=== PATIENT | female | born 1945 | race Caucasian/White ===

== ENCOUNTER 2019-03-31 23:15 | Inpatient (IN) | payer MEDICARE, OTHER ==
[~2019-03-31] VITALS: Ht 157.5 cm; Wt 54.4 kg
[2019-03-31 23:00] VITALS: BP 157/82
--- NOTE | 2019-03-31 23:00 | NUR ---
RECEIVED PATIENT VIA GURNEY A DIRECT ADMISSION FROM [facility] TO [facility]. PATIENT IS ALERT TO SELF ONLY. VERY CONFUSED AND DISORIENTED. NEEDS FREQUENT REDIRECTION. SITTER AT BEDSIDE FOR SAFETY. NO S/S OFP Addendum: 04/01/19 at 0323 by KARI RICK LVN NO S/S OF PAIN OR DISCOMFORT. NO FACIAL GRIMACE. WILL CONTINUE TO MONITOR.
--- NOTE | 2019-03-31 23:30 | NUR ---
PATIENT VERY AGITATED. SKIN ASSESSMENT DONE. SKIN NOTED TO BE INTACT. DRY RED SKIN NOTED TO BILATERAL HANDS, KNEES AND ELBOWS. UNABLE TO TAKE PICTURES AT THIS TIME. PATIENT REFUSING. ALL NEEDS ATTENDED. WILL CONTINUE TO MONITOR.
--- NOTE | 2019-04-01 00:30 | NUR ---
PATIENT WANDERING IN HALLWAY. VERY CONFUSED AND DISORIENTED. EASILY AGITATED WHEN APPROACHED, NEEDS FREQUENT REDIRECTION. SITTER AT BEDSIDE FOR SAFETY. ALL NEEDS ATTENDED.
[2019-04-01] MEDS ORDERED: MAGNESIUM HYDROXIDE 30 ML LIQUID UDC PO PRN (00:45)
[2019-04-01] MEDS ORDERED: CLONAZEPAM 0.5 MG TABLET PO SCH (00:45)
[2019-04-01] MEDS ORDERED: MAG HYDROX/AL HYDROX/SIMETH 30 ML LIQUID UDC PO PRN (00:45)
[2019-04-01] MEDS ORDERED: ACETAMINOPHEN 650 MG SUPP.RECT RC PRN (00:45)
[2019-04-01] MEDS: ACETAMINOPHEN 325 MG TABLET PO PRN (00:58)
[2019-04-01] MEDS: TEMAZEPAM 7.5 MG CAPSULE PO PRN (00:58)
--- NOTE | 2019-04-01 01:00 | NUR ---
PATIENT GIVEN RESTORIL 7.5MG PO PRN AND TYLENOL 650MG PO PRN. COOPERATIVE WITH TAKING PO MEDS. WILL CONTINUE TO MONITOR AND ASSESS.
--- NOTE | 2019-04-01 01:15 | NUR ---
PATIENT OOB AND TRYING TO ELOPE. UNABLE TO REDIRECT. AGITATED AND COMBATIVE WHEN APPROACHED. ROLLY MILLER CALLED AND PATIENT ASSISTED BACK TO BED. BED ALARM ON. SITTER AT BEDSIDE. ALL NEEDS ATTENDED. WILL CONTINUE TO MONITOR AND ASSESS.
[2019-04-01] MEDS ORDERED: ESCI10TA PO (01:35)
[2019-04-01] MEDS ORDERED: LOSA100T31 PO (01:35)
[2019-04-01] MEDS ORDERED: DIVA125T2 PO (01:35)
[2019-04-01] MEDS ORDERED: DIAZ10TA4 PO (01:35)
--- NOTE | 2019-04-01 01:55 | NUR ---
PATIENT AGGRESSIVE AND COMBATIVE WITH STAFF. ROLLY MILLER CALLED AGAIN FOR FURTHER ASSISTANCE. CALLED.
[2019-04-01] MEDS ORDERED: LORAZEPAM 2 MG/1 ML VIAL IM ONE (02:00)
[2019-04-01] MEDS ORDERED: diphenhydrAMINE 50 MG/1 ML VIAL IM ONE (02:00)
[2019-04-01] MEDS ORDERED: OLANZAPINE 10 MG VIAL IM ONE (02:00)
--- NOTE | 2019-04-01 02:00 | NUR ---
RECEIVED ORDERS FROM DR. MOE FOR IM INJECTION. BUSINESS DEVELOPMENT ASSOCIATE AND PIPELINE SYSTEMS OPERATOR AWARE. PATIENT GIVEN ZYPREXA 5MG IM, ATIVAN 1MG IM AND BENADRYL 25MG IM ORDERED PER MD. WILL CONTINUE TO MONITOR AND CLOSELY ASSESS. ALL NEEDS ATTENDED.
--- NOTE | 2019-04-01 02:15 | NUR ---
PATIENT IN BED. DOZING ON AND OFF. NO RESP. DISTRESS NOTED. ON RA SATING 95-96%. BED ALARM ON. SITTER AT BEDSIDE. ALL NEEDS ATTENDED. WILL CONTINUE TO MONITOR AND ASSESS. VSS.
[2019-04-01 02:30] VITALS: BP 141/67
--- NOTE | 2019-04-01 03:30 | NUR ---
PATIENT CLIMBED OOB. AMBULATING IN HALLWAY WITH SITTER. PATIENT IS VERY CONFUSED AND DISORIENTED. UNABLE TO REDIRECT, WHEN APPROACHED PATIENT IS VERY AGGRESSIVE.
--- NOTE | 2019-04-01 03:45 | NUR ---
PATIENT PLACED BACK TO BED. HITTING AND KICKING AT STAFF. BED ALARM ON. MENTAL HEALTH CHARGE NURSE AT BEDSIDE. SITTER AT BEDSIDE. WILL CONTINUE TO MONITOR. IM MEDICATION, INEFFECTIVE.
[2019-04-01] MEDS: CLONAZEPAM 0.5 MG TABLET PO PRN ×4 (04:44→17:19)
--- NOTE | 2019-04-01 04:45 | NUR ---
PATIENT AWAKE IN BED. VERY RESTLESS AND AGITATED. PATIENT GIVEN KLONOPIN 0.5MG PO PRN FOR ANXIETY. BED ALARM ON. ALL NEEDS ATTENDED, WILL CONTINUE TO MONITOR.
--- NOTE | 2019-04-01 06:01 | NUR ---
PATIENT AWAKE, SITTING IN CHERRIE-CHAIR WITH SITTER AT BEDSIDE. VERY ANXIOUS AND AGITATED. KLONOPIN INEFFECTIVE. NO RESP. DISTRESS NOTED. PICTURES TAKEN AND PLACED IN CHART. ALL NEEDS ATTENDED.
--- NOTE | 2019-04-01 07:15 | NUR ---
RECEIVED PATIENT PACING THE ROOM WITH 1;1 SITTER. AOX1, HARD TO REDIRECT. DENIES PAIN OR SOB AT THIS TIME. DENIES SI. FALL AND SAFETY PRECAUTIONS IN PLACE. BED IN LOW POSITION. CALL LIGHT IN REACH. BED LOCKED AND ALARM ON . WILL CONTINUE TO MONITOR.
[2019-04-01 08:00] VITALS: BP 155/78
[2019-04-01 12:00] VITALS: BP 136/73
[2019-04-01] MEDS: CEphaleXIN 500 MG CAPSULE PO SCH ×2 (13:14→22:07)
--- NOTE | 2019-04-01 15:08 | NUR ---
Initial Discharge Note: Patient is currently living at home with her daughter Carmen [[id number] [place] [address]; ]. Per daughter, "I would like her to return home if she is stabilized". Daughter wants to consider care home placement if patient continues exhibiting behavior problems. Search Engine Optimization Specialist will continue to collaborate with patient, family, and MD regarding appropriate discharge plans for this patient. Search Engine Optimization Specialist will form a safe and proper discharge plan.
[2019-04-01 16:19] VITALS: BP 151/81
--- NOTE | 2019-04-01 17:10 | NUR ---
PATIENT TRANSFERRED TO MHU VIA W/C WITH 1:1 SITTER. ALL BELONGINGS TRANSFERRED WITH PATIENT. REPORT GIVEN TO GABBY BRAN NURSE.
[2019-04-01] MEDS: DIVALPROEX SPRINKLE 125 MG CAP.SPRINK PO SCH (17:46)
--- NOTE | 2019-04-01 18:30 | NUR ---
GPS: RECEIVED PATIENT FROM OVERFLOW, PATIENT AMBULATORY, DISRORIENTED, CONFUSED, PATIENT UNABLE TO REDIRECT, PRN MEDICATION WAS GIVEN, PATIENT WITH 1:1 SITTER FOR SAFETY, PATIENT DELUSIONAL, PARANOID, WILL CONTINUE MONITOR
[2019-04-01 20:00] VITALS: BP 176/58
[2019-04-01] MEDS: QUETIAPINE FUMARATE 25 MG TABLET PO SCH (20:31)
[2019-04-01] MEDS: DIAZEPAM 10 MG TABLET PO SCH (20:31)
[2019-04-01] MEDS: ESCITALOPRAM OXALATE 10 MG TABLET PO SCH (20:31)
[2019-04-01] MEDS ORDERED: DIAZEPAM 5 MG TABLET PO SCH (21:00)
[2019-04-02] MEDS: CEphaleXIN 500 MG CAPSULE PO SCH ×3 (06:16→21:19)
[2019-04-02 07:30] VITALS: BP 158/67
[2019-04-02] MEDS: QUETIAPINE FUMARATE 25 MG TABLET PO SCH ×2 (08:42→20:26)
[2019-04-02] MEDS: DIAZEPAM 10 MG TABLET PO SCH ×2 (08:42→20:26)
[2019-04-02] MEDS: ACETAMINOPHEN 325 MG TABLET PO PRN ×3 (08:42→22:17)
[2019-04-02] MEDS: DIVALPROEX SPRINKLE 125 MG CAP.SPRINK PO SCH ×3 (08:42→16:46)
[2019-04-02] MEDS ORDERED: Medication Not On Formulary EA (Losartan Potassium 1 TAB) PO SCH (09:00)
[2019-04-02] MEDS: LOSARTAN POTASSIUM 50 MG TABLET PO SCH (14:29)
[2019-04-02 16:00] VITALS: BP 113/55
--- NOTE | 2019-04-02 18:00 | NUR ---
Gps/Nursery Attendant- Noted reddened knuckles/ hands, denies itching.
--- NOTE | 2019-04-02 18:11 | NUR ---
Gps/Hvac Engineer- Remains with 1:1 Nursing supervision for safety, routine mediciations was administered crushed with apple sauce. Tylenol 650 mg given po for arms discomfort, unable to verbalized pain levels, adequate relief.
[2019-04-02] MEDS: CLONAZEPAM 0.5 MG TABLET PO PRN ×2 (18:25→23:28)
--- NOTE | 2019-04-02 18:26 | NUR ---
Gps/Drawing Checker- OOB to scott-chair this pm, anxious, calling out, looking for her daughter. Continue to monitor safety, remains with 1:1 Nursing supervision.
[2019-04-02] MEDS: ATORVASTATIN 10 MG TABLET PO SCH (20:26)
[2019-04-02] MEDS: ESCITALOPRAM OXALATE 10 MG TABLET PO SCH (20:26)
[2019-04-02] MEDS: TEMAZEPAM 7.5 MG CAPSULE PO PRN (22:18)
[2019-04-03] MEDS: CLONAZEPAM 0.5 MG TABLET PO PRN ×3 (05:43→16:09)
[2019-04-03] MEDS: CEphaleXIN 500 MG CAPSULE PO SCH ×3 (05:43→21:46)
--- NOTE | 2019-04-03 06:25 | NUR ---
pt. unable to sleep all night long.severe agitation, confusion & disorientation noted. restoril 7.5 mg given for sleep & klonopin 0.5mg given q4hrs.prn. kept pt free from injury. pt. on 1:1 sitter for pt safety.
[2019-04-03 08:00] VITALS: BP 101/51
[2019-04-03] MEDS: LOSARTAN POTASSIUM 50 MG TABLET PO SCH (08:27)
[2019-04-03] MEDS: QUETIAPINE FUMARATE 25 MG TABLET PO SCH ×2 (08:28→21:00)
[2019-04-03] MEDS: DIAZEPAM 10 MG TABLET PO SCH ×2 (08:28→21:00)
[2019-04-03] MEDS: DIVALPROEX SPRINKLE 125 MG CAP.SPRINK PO SCH ×3 (08:28→16:10)
[2019-04-03] MEDS: ACETAMINOPHEN 325 MG TABLET PO PRN (12:15)
[2019-04-03 16:00] VITALS: BP 114/53
--- NOTE | 2019-04-03 20:00 | NUR ---
GPS/NSG Dr. Easley called to inform 72 hour hold at 2100. Dr. Easley stated Dr. Carias was covering for his patients. Dick Rosario, RN informed of hold status; to which Dr. Carias replied, "I will take care of it tomorrow in the morning."
[2019-04-03] MEDS: CLOTRIMAZOLE 1% CREAM 30 GM TUBE TOP SCH (20:13)
[2019-04-03 20:55] VITALS: BP 120/50
[2019-04-03] MEDS: ESCITALOPRAM OXALATE 10 MG TABLET PO SCH (21:00)
[2019-04-03] MEDS: ATORVASTATIN 10 MG TABLET PO SCH (21:00)
[2019-04-04] MEDS: CLONAZEPAM 0.5 MG TABLET PO PRN ×3 (02:19→20:12)
[2019-04-04] MEDS: ACETAMINOPHEN 325 MG TABLET PO PRN ×2 (02:26→12:42)
[2019-04-04] MEDS: CEphaleXIN 500 MG CAPSULE PO SCH ×3 (05:31→22:00)
[2019-04-04 07:30] VITALS: BP 139/64
[2019-04-04] MEDS: DIVALPROEX SPRINKLE 125 MG CAP.SPRINK PO SCH ×3 (08:20→17:31)
[2019-04-04] MEDS: LOSARTAN POTASSIUM 50 MG TABLET PO SCH (08:20)
[2019-04-04] MEDS: QUETIAPINE FUMARATE 25 MG TABLET PO SCH ×2 (08:20→20:12)
[2019-04-04] MEDS: DIAZEPAM 10 MG TABLET PO SCH ×2 (08:20→20:12)
[2019-04-04] MEDS: CLOTRIMAZOLE 1% CREAM 30 GM TUBE TOP SCH ×2 (08:21→17:30)
[2019-04-04 15:45] VITALS: BP 97/73
--- NOTE | 2019-04-04 17:00 | NUR ---
Gps/New Car Inspector- Patients' granddaughter Carmen in to visit this pm. Verbalized concerns regarding patient > sleepiness , informed patient didnt have good night sleep. Slow progress, had bouts of restlessness, needed constant supervision for her safety. Poor safety awareness, confused. Needed assist with all areas of her care as weel as needed assist with meals, no initiating to feed seld. Noted occ. coughing this pm, afebrile, will continue to monitor.
--- NOTE | 2019-04-04 18:36 | NUR ---
Gps/Loading Unit Operator Powder Charging- Patient starting to wake up, sat upright, fully awake, was feed w/ her dinner, fluids was offered. Remains with 1:1 Nursing supervision for safety.Removed dentures ,oral care was rendered by sitter.
[2019-04-04 19:59] VITALS: BP 146/62
[2019-04-04] MEDS: ESCITALOPRAM OXALATE 10 MG TABLET PO SCH (20:12)
[2019-04-04] MEDS: ATORVASTATIN 10 MG TABLET PO SCH (20:12)
--- NOTE | 2019-04-04 20:20 | NUR ---
Pt spit out scheduled HS meds: Valium 10mg, Lipitor 10mg, Seroquel 50mg, and Lexapro 10mg. Valium to be wasted. Klonopin 0.5mg successfully administered for restlessness and anxiety.
[2019-04-04] MEDS: TEMAZEPAM 7.5 MG CAPSULE PO PRN (21:39)
[2019-04-05] MEDS: CLONAZEPAM 0.5 MG TABLET PO PRN ×2 (00:20→06:00)
[2019-04-05] MEDS: CEphaleXIN 500 MG CAPSULE PO SCH ×2 (06:00→13:37)
[2019-04-05 07:30] VITALS: BP 141/66
[2019-04-05 07:37] LABS: BASOPHILS % (AUTO) 0.3 % (0.0-2.0); EOSINOPHILS # (AUTO) 0.1 K/uL (0.0-0.7); EOSINOPHILS % (AUTO) 0.4 % (0.0-7.0); HEMATOCRIT 41.8 % (31.2-41.9); HEMOGLOBIN 13.9 g/dL (10.9-14.3); LYMPHOCYTES # (AUTO) 1.9 K/uL (20.0-40.0); LYMPHOCYTES % (AUTO) 13.5 % (20.5-51.5); MEAN CORPUSCULAR HEMOGLOBIN 31.1 uug (24.7-32.8); MEAN CORPUSCULAR HGB CONC 33 g/dL (32.3-35.6); MEAN CORPUSCULAR VOLUME 93.9 fL (75.5-95.3); MONOCYTES # (AUTO) 0.8 K/uL (2.0-10.0); NEUTROPHILS # (AUTO) 11.3 K/uL (1.8-8.9); NEUTROPHILS % (AUTO) 79.8 % (38.5-71.5); PLATELET COUNT (AUTO) 218 K/uL (179-408); RED BLOOD CELL COUNT(AUTO) 4.45 MIL/uL (3.63-4.92); WHITE BLOOD COUNT (AUTO) 14.2 K/uL (3.8-11.8)
[2019-04-05 07:44] LABS: ALANINE AMINOTRANSFERASE 22 U/L (14-59); ALKALINE PHOSPHATASE 72 U/L (50-136); ASPARTATE AMINOTRANSFERASE 22 U/L (15-37); BILIRUBIN,TOTAL 0.7 mg/dL (0.2-1.0); CARBON DIOXIDE 24 mmol/L (21-32); CHLORIDE 113 mmol/L (98-107); CREATININE 0.9 mg/dL (0.6-1.3); GLUCOSE 101 mg/dL (74-106); MAGNESIUM 2.1 mg/dL (1.8-2.4); PHOSPHOROUS 2.6 mg/dL (2.5-4.9); POTASSIUM 4.2 mmol/L (3.5-5.1); TOTAL PROTEIN, SERUM 7.5 g/dL (6.4-8.2); UREA NITROGEN, BLOOD 19 mg/dL (7-18)
[2019-04-05] MEDS: DIAZEPAM 10 MG TABLET PO SCH (08:15)
[2019-04-05] MEDS: QUETIAPINE FUMARATE 25 MG TABLET PO SCH (08:15)
[2019-04-05] MEDS: DIVALPROEX SPRINKLE 125 MG CAP.SPRINK PO SCH ×4 (08:16→17:00)
[2019-04-05] MEDS: LOSARTAN POTASSIUM 50 MG TABLET PO SCH (08:16)
[2019-04-05] MEDS: CLOTRIMAZOLE 1% CREAM 30 GM TUBE TOP SCH ×2 (08:17→17:27)
--- NOTE | 2019-04-05 10:00 | NUR ---
Gps/Sales And Marketing Representative- remains on 1:1 Nursing supervision for safety, gets figity,restless,mumbling , calling out , assisted with breakfast, feeder not initiating to feed self, , fluids offered encouraged. Confused,incoherent speech , assist to the toilet.Patches of multiple bruising to bilateral upper arms, rashy areas on hers knucles and hands, per daughter she always have those rashes r/t long history of psoriasis.
--- NOTE | 2019-04-05 15:53 | NUR ---
Gps/Herbicide Service Sales Representative- Carmen(daughter) in to visit, patient asleep while up on her scott-chair, unable to feed lunch at this time. Will attempt to feed when fully awake.
[2019-04-05 16:00] VITALS: BP 111/75
--- NOTE | 2019-04-05 17:20 | NUR ---
Gps/Chemical Analytical Sampler- While talking to patients' daughter Carmen patient trying to open eyes, and trying to sit upright , in no sign of any distress.
--- NOTE | 2019-04-05 17:36 | NUR ---
Gps/Field Account Director-Per daughter(Carmen), patient is much calmer compared to when she was at home, reviewed medications w/ her .Requesting to talk to Psychiatrist tomorrow if possible.Per daughter plan to take her home with a caregiver when patient is ready.
--- NOTE | 2019-04-05 17:55 | NUR ---
PT NOTED TO HAVE DECREASED OXYGEN SATURATION, AND DROPPING. PT IS RESPONSIVE ONLY TO PAINFUL STIMULI. CALLED DR. Caden DEXTER. RECEIVED ORDER TO SEND TO ER FOR FURTHER EVALUATION. NURSING GUEST SERVICES COORDINATOR PRESENT. PLACED 5L O2 VIA NC. FAMILY IS CURRENTLY WITH PT. 1:1 SITTER WITH PT AT ALL TIMES. PT IS DNR/DNI.
--- NOTE | 2019-04-05 17:55 | NUR ---
Gps/Film Historian- ASIC ENGINEER called for help, to assess patient, claimed noted pt. non responsive, in deep sleep. B/P 125/41 HR 78 but 02 sat was in the 70's. Nursing Management Professor Tabby in the unit came and checked pt. 02 4-5 liters was administered via nasal cannula. Patient was taken to ER for further eval. and care. Daughter Carmen and granddaughter in the waiting room (ER).
--- NOTE | 2019-04-05 18:45 | NUR ---
CALLED AND SPOKE TO DR. PEREYRA, SESSIONS CLERK FOR THE WEEKEND TO NOTIFY OF PT STATUS. INSTRUCTED TO LET DR. MATTA, WHO IS SESSIONS CLERK FOR DR. MOE. PAGED HIM AND AWAITING CALL BACK.
--- NOTE | 2019-04-05 18:45 | NUR ---
Gps/Information Security Systems Instructor- Patients' belongings was given to patient(ER) including dentures upper and lower taken by ALFRED Perry.
--- NOTE | 2019-04-05 18:52 | NUR ---
DR. MATTA IS NOTIFIED WELL AT THIS TIME.
[2019-04-06] MEDS ORDERED: DIAZ10TA PO (08:13)
[2019-04-06] MEDS ORDERED: CLOT15CR63 TP (08:13)
[2019-04-06] MEDS ORDERED: CLON0.5T12 PO (08:13)
[2019-04-06] MEDS ORDERED: ATOR10TA PO (08:13)
[2019-04-06] MEDS ORDERED: QUET25TA PO (08:15)
[2019-04-06] MEDS ORDERED: ESCI10TA PO (08:15)
[2019-04-06] MEDS ORDERED: TEMA7.5C PO (08:15)
[2019-04-06] MEDS ORDERED: DIVA125C2 PO (08:15)
== END 2019-04-05 19:20 | disposition short-term general hospital (02) | DRG 885 ==
LOC: GPSOV3 23:15 → GPS 04-01 16:21
PROVIDERS: ADMIT Psychiatry & Neurology Psychiatry; ATTEND Hospitalist
DX: F39 Unspecified mood [affective] disorder (principal); F03.91 Unspecified dementia, unspecified severity, with behavioral disturbance; N39.0 Urinary tract infection, site not specified; Z87.891 Personal history of nicotine dependence; Z90.49 Acquired absence of other specified parts of digestive tract; Z87.440 Personal history of urinary (tract) infections; I11.9 Hypertensive heart disease without heart failure; Z83.3 Family history of diabetes mellitus; E78.5 Hyperlipidemia, unspecified; Z91.19 Patient's noncompliance with other medical treatment and regimen; F41.9 Anxiety disorder, unspecified; F10.21 Alcohol dependence, in remission; Y90.9 Presence of alcohol in blood, level not specified; Z87.11 Personal history of peptic ulcer disease
CPT/HCPCS: 36415; 71045; 83735; 84100; 85025; 93005; J1200; J2060; J2358

== ENCOUNTER 2019-04-05 18:06 | Inpatient (IN) | payer MEDICARE, OTHER ==
[~2019-04-05] VITALS: Ht 157.5 cm; Wt 54.4 kg
[~2019-04-05 18:06] MED LIST: LOSA100T31 PO
--- NOTE | 2019-04-05 18:22 | NUR ---
PT IS IN ROOM #1B. DR MEDLEY EVALUATED THE PT.
[2019-04-05 18:39] LABS: BASOPHILS # (AUTO) 0.1 K/uL (0.0-8.0); BASOPHILS % (AUTO) 0.4 % (0.0-2.0); HEMATOCRIT 41.5 % (31.2-41.9); HEMOGLOBIN 13.7 g/dL (10.9-14.3); LYMPHOCYTES % (AUTO) 6.3 % (20.5-51.5); MEAN CORPUSCULAR HEMOGLOBIN 31.5 uug (24.7-32.8); MEAN CORPUSCULAR HGB CONC 33 g/dL (32.3-35.6); MEAN CORPUSCULAR VOLUME 95.5 fL (75.5-95.3); MONOCYTES # (AUTO) 0.7 K/uL (2.0-10.0); MONOCYTES % (AUTO) 4.6 % (0.0-11.0); NEUTROPHILS # (AUTO) 14.3 K/uL (1.8-8.9); NEUTROPHILS % (AUTO) 88.7 % (38.5-71.5); PLATELET COUNT (AUTO) 186 K/uL (179-408); RED BLOOD CELL COUNT(AUTO) 4.34 MIL/uL (3.63-4.92); WHITE BLOOD COUNT (AUTO) 16.1 K/uL (3.8-11.8)
[2019-04-05 18:50] LABS: CARBON DIOXIDE 24 mmol/L (21-32); CHLORIDE 111 mmol/L (98-107); GLUCOSE 117 mg/dL (74-106); POTASSIUM 4.3 mmol/L (3.5-5.1); UREA NITROGEN, BLOOD 21 mg/dL (7-18)
--- NOTE | 2019-04-05 18:57 | NUR ---
REPORT GIVEN TO COAL DELIVERER RN,
[2019-04-05 19:02] LABS: ALANINE AMINOTRANSFERASE 21 U/L (14-59); ALKALINE PHOSPHATASE 69 U/L (50-136); ASPARTATE AMINOTRANSFERASE 22 U/L (15-37); BILIRUBIN,DIRECT 0.1 mg/dL (0.0-0.2); BILIRUBIN,TOTAL 0.7 mg/dL (0.2-1.0); TOTAL PROTEIN, SERUM 7.4 g/dL (6.4-8.2)
[2019-04-05 19:03] LABS: *BILIRUBIN,URIN NEGATIVE (NEGATIVE); *BLOOD, URINE NEGATIVE (NEGATIVE); *CLARITY,URINE SLIGHTLY CLOUDY (CLEAR); *COLOR,URINE YELLOW (YELLOW); *KETONES,URINE TRACE (NEGATIVE); *UROBILINOGEN,URINE 0.2 E.U./dl (NORMAL); LEUKOCYTE ESTERASE ,URINE 1+ (NEGATIVE); NITRITE, URINE NEGATIVE (NEGATIVE); PH,URINE 5.5 (5.0-8.0); UGLUCOSE NEGATIVE (NEGATIVE)
[2019-04-05 19:14] LABS: BACTERIA,URINE FEW /HPF (NONE SEEN); RBC,URINE 0-3 /HPF (0-3); SQUAMOUS EPITHELIAL CELL,UR FEW /HPF (NONE SEEN); WBC,URINE 20-50 /HPF (0-3)
[2019-04-05] MEDS ORDERED: PIPERACILLIN SODIUM/TAZOBACTAM 3.375 G in IV DEXTROSE 5% 50 ML IV ONE (19:15)
[2019-04-05] MEDS ORDERED: GENTAMICIN SULFATE INJ 80 MG in IV DEXTROSE 5% 100 ML IV ONE (19:15)
[2019-04-05] MEDS ORDERED: IV NORMAL SALINE 1000 ML BAG IV ONE (19:15)
[2019-04-05] MEDS ORDERED: GENTAMICIN SULFATE 80 MG/2 ML VIAL ONE (19:20)
[2019-04-05] MEDS ORDERED: PIPERACILLIN SODIUM/TAZO 3.375 GM VIAL ONE (19:21)
--- NOTE | 2019-04-05 20:34 | NUR ---
[facility] has been contacted. Awaiting call back from Antonio
--- NOTE | 2019-04-05 21:12 | NUR ---
Report given to MARITA Stanley
--- NOTE | 2019-04-05 21:39 | NUR ---
Patient transported to TELE in stable condition.
[2019-04-05] MEDS ORDERED: IV NS 1000 ML 1,000 ML IV PRN (21:47)
[2019-04-05] MEDS ORDERED: Z GUARD REMEDY PASTE 57 GM TUBE TOP PRN (22:00)
[2019-04-05] MEDS ORDERED: MAGNESIUM HYDROXIDE 30 ML LIQUID UDC PO PRN (22:00)
[2019-04-05] MEDS ORDERED: ACETAMINOPHEN 325 MG TABLET PO PRN (22:00)
[2019-04-05] MEDS ORDERED: ONDANSETRON 4 MG/2 ML VIAL IV PRN (22:00)
[2019-04-05] MEDS ORDERED: TEMAZEPAM 15 MG CAPSULE PO PRN (22:00)
[2019-04-05 22:30] VITALS: BP 152/63
--- NOTE | 2019-04-05 22:43 | NUR ---
Pt arrived in the unit at 2145 via gurney. Family at bedside. Pt lethargic, respond to tactile stimuli. No acute distress noted. On 2L O2, tolerating well. FLACC scale 0. Sitter at bedside for safety. Resolving hematoma on both arms and knees. MRSA done and sent to the lab. Pertinent assessment done. Safety measures maintained. Will continue to monitor.
[2019-04-06 00:13] VITALS: BP 159/63
--- NOTE | 2019-04-06 00:33 | NUR ---
Pt continues to be lethargic. BP elevated 159/63. Asymptomatic. No SOB noted. Notified Dr. Stout regarding pt's condition and BP. No further orders and advised to monitor. 1:1 sitter at bedside. Will continue to monitor.
[2019-04-06] MEDS ORDERED: PIPERACILLIN SODIUM/TAZO 3.375 GM VIAL ONE (00:47)
[2019-04-06] MEDS ORDERED: PIPERACILLIN/TAZOBACTAM/D5W 3.375 G in PREMIXED 1 EACH IV SCH (01:00)
[2019-04-06 04:00] VITALS: BP 131/56
--- NOTE | 2019-04-06 06:31 | NUR ---
Pt awake. Noted to be confused and trying to get out of bed. Reoriented and redirected. Sitter at bedside. Will continue to monitor.
[2019-04-06 07:03] LABS: CARBON DIOXIDE 26 mmol/L (21-32); CHLORIDE 114 mmol/L (98-107); CHOLESTEROL 156 mg/dL (<200); CREATININE 0.8 mg/dL (0.6-1.3); GLUCOSE 91 mg/dL (74-106); HDL CHOLESTEROL 49 mg/dL (40-60); MAGNESIUM 1.9 mg/dL (1.8-2.4); PHOSPHOROUS 2.9 mg/dL (2.5-4.9); TRIGLYCERIDES 85 MG/DL (30-150); UREA NITROGEN, BLOOD 14 mg/dL (7-18)
[2019-04-06 07:07] LABS: BASOPHILS % (AUTO) 0.3 % (0.0-2.0); EOSINOPHILS % (AUTO) 0.2 % (0.0-7.0); LYMPHOCYTES # (AUTO) 1.5 K/uL (20.0-40.0); LYMPHOCYTES % (AUTO) 8.9 % (20.5-51.5); MEAN CORPUSCULAR HEMOGLOBIN 31.3 uug (24.7-32.8); MEAN CORPUSCULAR HGB CONC 33 g/dL (32.3-35.6); MEAN CORPUSCULAR VOLUME 94.7 fL (75.5-95.3); MONOCYTES # (AUTO) 1.2 K/uL (2.0-10.0); MONOCYTES % (AUTO) 7.2 % (0.0-11.0); NEUTROPHILS # (AUTO) 13.7 K/uL (1.8-8.9); NEUTROPHILS % (AUTO) 83.4 % (38.5-71.5); PLATELET COUNT (AUTO) 168 K/uL (179-408); RED BLOOD CELL COUNT(AUTO) 3.94 MIL/uL (3.63-4.92); WHITE BLOOD COUNT (AUTO) 16.4 K/uL (3.8-11.8)
[2019-04-06 07:15] LABS: HEMATOCRIT 37.3 % (31.2-41.9); HEMOGLOBIN 12.4 g/dL (10.9-14.3)
[2019-04-06 07:30] VITALS: BP 139/68
--- NOTE | 2019-04-06 07:30 | NUR ---
Received patient in bed 1:1 sitter at bedside, patient restless, agitated and banging BLE against side rails patient confused and attempting to get out of bed unsupervised. Patient also manage to scratch and attempted to removed Iv site which looks slightly swollen and red. Attending notified and orders received and implemented for patient safety. Will continue to monitor.
[2019-04-06] MEDS ORDERED: CLOT15CR63 TP (08:13)
[2019-04-06] MEDS ORDERED: ATOR10TA PO (08:13)
[2019-04-06] MEDS ORDERED: CLON0.5T12 PO (08:13)
[2019-04-06] MEDS ORDERED: DIAZ10TA PO (08:13)
[2019-04-06] MEDS ORDERED: ESCI10TA PO (08:15)
[2019-04-06] MEDS ORDERED: QUET25TA PO (08:15)
[2019-04-06] MEDS ORDERED: TEMA7.5C PO (08:15)
[2019-04-06] MEDS ORDERED: DIVA125C2 PO (08:15)
[2019-04-06] MEDS: PIPERACILLIN/TAZOBACTAM/D5W 3.375 G in PREMIXED 1 EACH IV SCH ×2 (09:00→16:57)
[2019-04-06] MEDS: LORAZEPAM 2 MG/1 ML VIAL IV PRN ×3 (09:00→22:21)
[2019-04-06] MEDS ORDERED: Medication Not On Formulary EA (Losartan Potassium 1 TAB) PO SCH (09:00)
[2019-04-06] MEDS: LOSARTAN POTASSIUM 50 MG TABLET PO SCH (09:00)
[2019-04-06 12:00] VITALS: BP 149/71
[2019-04-06] MEDS: CLONAZEPAM 0.5 MG TABLET PO PRN (12:30)
[2019-04-06] MEDS ORDERED: PIPERACILLIN/TAZOBACTAM/D5W 50 ML IV SCH (13:00)
[2019-04-06 15:00] VITALS: BP 149/73
[2019-04-06] MEDS: ESCITALOPRAM OXALATE 10 MG TABLET PO SCH ×2 (15:30→15:54)
[2019-04-06] MEDS: DIVALPROEX 250 MG TABLET.DR PO SCH ×3 (15:30→21:00)
--- NOTE | 2019-04-06 16:13 | NUR ---
Patient remains restless and agitated, at this time seen by psychiatrist aware of pt's restlessness and agitation.
[2019-04-06] MEDS: QUETIAPINE FUMARATE 25 MG TABLET PO SCH ×2 (16:15→16:17)
--- NOTE | 2019-04-06 16:17 | NUR ---
Medications crushed and given with apple sauce, patient spit out all the medications and multiple attempts done to administer medication patient refusing to swallow it at this time. PT's daughter at bedside. Addendum: 04/06/19 at 1618 by NOEMI WADDELL RN Attending notified.
[2019-04-06] MEDS ORDERED: Z GUARD REMEDY PASTE 57 GM TUBE TOP PRN (16:30)
[2019-04-06] MEDS: IV 1/2NS 1000 ML 1,000 ML IV PRN (16:55)
[2019-04-06] MEDS ORDERED: ZIPRASIDONE MESYLATE 20 MG VIAL IM ONE (17:15)
--- NOTE | 2019-04-06 20:00 | NUR ---
Pt. resting in bed with family member at bedside and 1:1 sitter for safety. Pt. appears restless. Pt. on 2 L NC. IV in right hand 20 gauge patent, intact, hep lock and IV in left hand 20 gauge intact, patent, running fluids. Safety measures in place. Will continue to monitor.
--- NOTE | 2019-04-06 23:00 | NUR ---
Pt. is agitated and restless in bed. Pt. is not alert enough to take 2100 medication depakote. Attempted to wake pt. up with sitter and charge nurse. Pt. is arousable to pain stimuli, but too sedated to take PO medication. Due to possible aspiration will not give pt. 2100 PO medication. Vital signs stable. Will continue to monitor.
--- NOTE | 2019-04-06 23:30 | NUR ---
Pt. is attempting to get out of bed and hitting upper and lower extremities against bed side rails. Sitter at bedside. Reorienting pt. to reality and calming pt. down. PRN Ativan given. Side rails padded with cushion due to BLE bruising from agitation. Will continue to monitor pt.
[2019-04-07] VITALS: BP 141/72
[2019-04-07] MEDS: PIPERACILLIN/TAZOBACTAM/D5W 3.375 G in PREMIXED 1 EACH IV SCH ×3 (01:59→17:00)
[2019-04-07 05:00] VITALS: BP 151/63
--- NOTE | 2019-04-07 05:56 | NUR ---
Pt. sleeping in bed with sitter at bedside. Vital signs stable. Pt. on 2 L NC. IV in R hand 20 gauge patent intact. IV in L hand 20 gauge patent intact. Safety measures in place. Will continue to monitor and endorse to AM shift
[2019-04-07] MEDS: IV 1/2NS 1000 ML 1,000 ML IV PRN ×2 (06:23→20:18)
--- NOTE | 2019-04-07 07:49 | NUR ---
Sleeping, appears comfortable. O2 at 2L/NC. IVF infusing. 1:1 sitter at bedside. Side rails padded.
[2019-04-07 08:16] VITALS: BP 144/67
[2019-04-07] MEDS: QUETIAPINE FUMARATE 25 MG TABLET PO SCH ×3 (09:55→17:00)
[2019-04-07] MEDS: ESCITALOPRAM OXALATE 10 MG TABLET PO SCH (09:55)
[2019-04-07] MEDS: LOSARTAN POTASSIUM 50 MG TABLET PO SCH (09:56)
--- NOTE | 2019-04-07 10:00 | NUR ---
PT eval re-initiated, patient unable to participate. Patient became restless, attempting to get out of bed. Due meds given, refused to eat breakfast. Incontinence care done. Repositioned comfortably in bed. 1:1 sitter at bedside
[2019-04-07] MEDS: VALPROIC ACID 250 MG/5 ML LIQUID UDC PO SCH ×2 (10:15→20:18)
--- NOTE | 2019-04-07 11:00 | NUR ---
Patient noted in bed calm and resting. Family at bedside
[2019-04-07 12:00] VITALS: BP 119/59
--- NOTE | 2019-04-07 13:15 | NUR ---
Received message patient is positive for c-diff. Contact isolation initiated
--- NOTE | 2019-04-07 14:00 | NUR ---
Patient still sleeping at this time. Unable to take her Seroquel dose at 1pm.
[2019-04-07 16:26] VITALS: BP 114/60
[2019-04-07] MEDS: CLOTRIMAZOLE 1% CREAM 30 GM TUBE TP SCH (17:01)
[2019-04-07] MEDS: VANCOMYCIN FOR PO/GT/NG USE PO SCH ×2 (18:00→23:12)
--- NOTE | 2019-04-07 18:35 | NUR ---
Patient still sleeping at this time. Unable to take her Seroquel and Vancomycin PO.
--- NOTE | 2019-04-07 18:37 | NUR ---
Patient not in distress. O2 sat at 97% at 2lpm via NC.
[2019-04-07 20:00] VITALS: BP 148/63
--- NOTE | 2019-04-07 20:00 | NUR ---
Pt. resting in bed comfortably. IV in right hand 20 gauge patent intact and IV in left hand 20 gauge patent and intact. Pt. on Isolation precautions for C.diff. Pt. on 2 L NC. Sitter at bedside for safety. Side rails padded. Safety measures in place. Will continue to monitor pt.
[2019-04-07] MEDS: ATORVASTATIN 10 MG TABLET PO SCH (20:18)
[2019-04-07] MEDS: CLONAZEPAM 0.5 MG TABLET PO PRN (23:13)
--- NOTE | 2019-04-07 23:50 | NUR ---
Pt. is agitated and restless attempting to get out of bed. Reoriented pt. to reality and tried to calm pt. down. PRN Klonpin given and PRN Restoril given. Will continue to monitor pt.
[2019-04-08] MEDS: LORAZEPAM 2 MG/1 ML VIAL IV PRN (00:46)
[2019-04-08] MEDS: PIPERACILLIN/TAZOBACTAM/D5W 3.375 G in PREMIXED 1 EACH IV SCH ×3 (01:38→16:11)
[2019-04-08] MEDS: HYDROCODONE/APAP 5-325MG TABLET PO PRN ×2 (02:40→23:00)
[2019-04-08 04:00] VITALS: BP 149/62
[2019-04-08 06:26] LABS: BASOPHILS # (AUTO) 0.1 K/uL (0.0-8.0); BASOPHILS % (AUTO) 0.5 % (0.0-2.0); EOSINOPHILS # (AUTO) 0.1 K/uL (0.0-0.7); EOSINOPHILS % (AUTO) 0.7 % (0.0-7.0); HEMATOCRIT 32.6 % (31.2-41.9); LYMPHOCYTES # (AUTO) 1.4 K/uL (20.0-40.0); LYMPHOCYTES % (AUTO) 12.2 % (20.5-51.5); MEAN CORPUSCULAR HEMOGLOBIN 31.5 uug (24.7-32.8); MEAN CORPUSCULAR HGB CONC 34 g/dL (32.3-35.6); MONOCYTES # (AUTO) 1.2 K/uL (2.0-10.0); MONOCYTES % (AUTO) 10.8 % (0.0-11.0); NEUTROPHILS # (AUTO) 8.7 K/uL (1.8-8.9); NEUTROPHILS % (AUTO) 75.8 % (38.5-71.5); PLATELET COUNT (AUTO) 151 K/uL (179-408); RED BLOOD CELL COUNT(AUTO) 3.51 MIL/uL (3.63-4.92); WHITE BLOOD COUNT (AUTO) 11.5 K/uL (3.8-11.8)
[2019-04-08 06:36] LABS: CARBON DIOXIDE 26 mmol/L (21-32); CHLORIDE 112 mmol/L (98-107); CREATININE 0.7 mg/dL (0.6-1.3); GLUCOSE 102 mg/dL (74-106); MAGNESIUM 1.9 mg/dL (1.8-2.4); PHOSPHOROUS 2.1 mg/dL (2.5-4.9); POTASSIUM 3.2 mmol/L (3.5-5.1); UREA NITROGEN, BLOOD 8 mg/dL (7-18)
--- NOTE | 2019-04-08 06:38 | NUR ---
Pt. is resting in bed with sitter at bedside. Pt. agitated and restless throughout night. PRN norco given at 0240. Around 0330 pt. fell asleep. Pt. on 2 L NC. New IV inserted today on L forearm 22 gauge intact, patent, and running fluids. Previous IV in R hand removed due to IV leaking and L forearm IV removed due to infiltrated. Safety measures in place. Comfort measures provided. Will continue to monitor. Will endorse to AM nurse
[2019-04-08] MEDS: VANCOMYCIN FOR PO/GT/NG USE PO SCH ×4 (06:44→23:42)
[2019-04-08] MEDS: ESCITALOPRAM OXALATE 10 MG TABLET PO SCH (08:03)
[2019-04-08] MEDS: VALPROIC ACID 250 MG/5 ML LIQUID UDC PO SCH ×2 (08:03→21:49)
[2019-04-08] MEDS: QUETIAPINE FUMARATE 25 MG TABLET PO SCH ×3 (08:03→16:12)
[2019-04-08] MEDS: LOSARTAN POTASSIUM 50 MG TABLET PO SCH (08:06)
[2019-04-08] MEDS: CLOTRIMAZOLE 1% CREAM 30 GM TUBE TP SCH ×2 (09:17→16:12)
[2019-04-08] MEDS ORDERED: POTASSIUM CHLORIDE 20 MEQ TAB.PRT.SR PO ONE (11:15)
[2019-04-08] MEDS: IV 1/2NS 1000 ML 1,000 ML IV PRN (11:39)
[2019-04-08] MEDS ORDERED: NEUTRA PHOS PACKET PO ONE (15:15)
[2019-04-08 16:37] VITALS: BP 128/57
--- NOTE | 2019-04-08 19:45 | NUR ---
PATIENT ASLEEP BUT EASILY AROUSED. HOB ELEVATED NO SOB NO CHEST PAIN NOTED. PATIENT ISOLATION FOR C DIFF, GOOD HANDWASHING DONE BEFORE AND AFTER PATIENT CARE. CONT TO MONITOR.
[2019-04-08 20:00] VITALS: BP 131/63
[2019-04-08] MEDS: CLONAZEPAM 0.5 MG TABLET PO PRN (21:54)
[2019-04-08] MEDS: ATORVASTATIN 10 MG TABLET PO SCH (21:57)
--- NOTE | 2019-04-08 21:59 | NUR ---
PATIENT AWAKE VERY AGITATED, RESTLESS IN BED, TRIED TO CLIMB OUT OF BED. PATIENT WAS GIVEN PRN KLONOPIN ORDERED. CONT ON 1;1 SITTER FOR SAFETY. CONT TO MONITOR.
[2019-04-09] MEDS: LORAZEPAM 2 MG/1 ML VIAL IV PRN ×2 (00:05→15:49)
--- NOTE | 2019-04-09 00:08 | NUR ---
PATIENT STILL AGITATED, RESTLESS IN BED, MULTIPLE ATTEMPTS TO CLIMB OOB. CLONOPIN MEDICATIONS HAS LITTLE HELP AT THIS TIME. CONT TO MONITOR.
[2019-04-09] MEDS: PIPERACILLIN/TAZOBACTAM/D5W 3.375 G in PREMIXED 1 EACH IV SCH ×2 (00:11→09:31)
[2019-04-09] MEDS: IV 1/2NS 1000 ML 1,000 ML IV PRN (02:00)
[2019-04-09] MEDS: VANCOMYCIN FOR PO/GT/NG USE PO SCH ×2 (05:02→12:15)
[2019-04-09 05:10] VITALS: BP 129/72
[2019-04-09 06:32] LABS: BASOPHILS % (AUTO) 0.2 % (0.0-2.0); EOSINOPHILS # (AUTO) 0.2 K/uL (0.0-0.7); EOSINOPHILS % (AUTO) 2.2 % (0.0-7.0); HEMATOCRIT 34.2 % (31.2-41.9); HEMOGLOBIN 11.5 g/dL (10.9-14.3); LYMPHOCYTES # (AUTO) 1.2 K/uL (20.0-40.0); LYMPHOCYTES % (AUTO) 10.4 % (20.5-51.5); MEAN CORPUSCULAR HEMOGLOBIN 31.3 uug (24.7-32.8); MEAN CORPUSCULAR HGB CONC 34 g/dL (32.3-35.6); MEAN CORPUSCULAR VOLUME 93.3 fL (75.5-95.3); MONOCYTES # (AUTO) 1.1 K/uL (2.0-10.0); MONOCYTES % (AUTO) 9.2 % (0.0-11.0); PLATELET COUNT (AUTO) 176 K/uL (179-408); RED BLOOD CELL COUNT(AUTO) 3.66 MIL/uL (3.63-4.92); WHITE BLOOD COUNT (AUTO) 11.6 K/uL (3.8-11.8)
[2019-04-09 06:34] LABS: CHLORIDE 111 mmol/L (98-107); CREATININE 0.8 mg/dL (0.6-1.3); GLUCOSE 102 mg/dL (74-106); MAGNESIUM 1.9 mg/dL (1.8-2.4); PHOSPHOROUS 2.7 mg/dL (2.5-4.9); POTASSIUM 3.2 mmol/L (3.5-5.1); UREA NITROGEN, BLOOD 9 mg/dL (7-18)
[2019-04-09 06:41] LABS: CARBON DIOXIDE 24 mmol/L (21-32)
--- NOTE | 2019-04-09 06:48 | NUR ---
PATIENT ASLEEP BUT EASILY AROUSABLE. PATIENT HAS THREE LOOSE BOWEL MOVEMENTS. PATIENT REMAINS ON CONTACT ISOLATION FOR CDIFF. PATIENT HAS 4 HRS OF SLEEP ONLY, KEPT CLEAN AND DRY. PATIENT HAS MULTIPLE EPISODE OF AGITATION MB CLIMBING OUT OF BED, PULL HERSELF SO SHE CAN JUMP OUT OF BED, PULLING HER IV LINE. CONT ON 1;1 SITTER FOR SAFETY. CONT TO MONITOR.
--- NOTE | 2019-04-09 07:25 | NUR ---
RECEIVED PATIENT SITING IN CHERRIE CHAIR, IRRITABLE WITH SITTER AT BEDSIDE. NO DISTRESS NOTED. WILL CONTINUE TO MONITOR.
[2019-04-09 07:40] VITALS: BP 134/74
[2019-04-09] MEDS: ESCITALOPRAM OXALATE 10 MG TABLET PO SCH (08:15)
[2019-04-09] MEDS: VALPROIC ACID 250 MG/5 ML LIQUID UDC PO SCH (08:15)
[2019-04-09] MEDS: QUETIAPINE FUMARATE 25 MG TABLET PO SCH ×2 (08:15→12:15)
[2019-04-09] MEDS ORDERED: POTASSIUM CHLORIDE 20 MEQ TAB.PRT.SR PO ONE (08:15)
[2019-04-09] MEDS: LOSARTAN POTASSIUM 50 MG TABLET PO SCH (08:16)
[2019-04-09] MEDS: CLOTRIMAZOLE 1% CREAM 30 GM TUBE TP SCH (09:32)
[2019-04-09 11:04] VITALS: BP 116/58
[2019-04-09] MEDS ORDERED: VANC500V PO (12:53)
[2019-04-09] MEDS: CLONAZEPAM 0.5 MG TABLET PO PRN (15:19)
--- NOTE | 2019-04-09 17:00 | NUR ---
AMBULANCE ARRIVED, REPORT GIVEN. PATIENT AGITATED, ATIVAN IV AND CLONIPINE GIVEN PO. PATIENT SATURATION BELOW 94%. PER AMBULANCE UNABLE TO TRANSFER UNLESS O2 SAT 94%. CONTACTED DR RDZ, PER DR RDZ PATIENT OK TO TRANSFER. CALLED [facility] REPORT GIVEN. PATIENT TRANSFERED.
== END 2019-04-09 17:20 | DRG 871 ==
LOC: ER 18:06 → TELE3 21:29 → MEDSURG3 04-07 13:56
PROVIDERS: ADMIT Hospitalist
DX: A41.9 Sepsis, unspecified organism (principal); G93.41 Metabolic encephalopathy; N39.0 Urinary tract infection, site not specified; F32.3 Major depressive disorder, single episode, severe with psychotic features; A04.72 Enterocolitis due to Clostridium difficile, not specified as recurrent; R65.20 Severe sepsis without septic shock; Z87.891 Personal history of nicotine dependence; E78.5 Hyperlipidemia, unspecified; Z87.440 Personal history of urinary (tract) infections; Z90.49 Acquired absence of other specified parts of digestive tract; F41.9 Anxiety disorder, unspecified; Z87.11 Personal history of peptic ulcer disease; F03.90 Unspecified dementia, unspecified severity, without behavioral disturbance, psychotic disturbance, mood disturbance, and anxiety; E11.9 Type 2 diabetes mellitus without complications; I10 Essential (primary) hypertension
CPT/HCPCS: 36415; 70030-TC; 70450; 71045; 83605; 83735; 84100; 84443; 85025; 85730; 87040; 87086; 93005; 97110; 97530; A4663; C1758; G0378; J1580; J2060; J2543; J3370; J3486; J3490; J7030; J7060